=== PATIENT | male | born 1995 | race Hispanic/Latino ===

== ENCOUNTER 2019-01-01 09:25 | Emergency (ER) | payer OTHER ==
[2019-01-01] MEDS ORDERED: Acetaminophen 500 MG TAB ONE (10:15)
[2019-01-01] MEDS ORDERED: Diazepam 10 MG/2 ML SYRINGE ONE (10:15)
[2019-01-01] MEDS ORDERED: Dexamethasone 10 MG/ML VIAL ONE (10:15)
--- NOTE | 2019-01-01 10:56 | RAD ---
EXAM: 3 views of the lumbosacral spine HISTORY: Low back pain COMPARISON: None FINDINGS: 3 views of the lumbosacral spine shows normal height and alignment of the vertebral bodies and intervertebral discs without fracture or subluxation. No significant degenerative changes are seen. The sacroiliac joints are unremarkable. IMPRESSION: No significant lumbar spine abnormality.
--- NOTE | 2019-01-01 10:56 | RAD ---
Exam: Single view of the pelvis HISTORY: Pelvic and hip pain COMPARISON: None FINDINGS: A single view the pelvis shows no evidence of acute fracture or dislocation. No degenerativ e changes seen in either hip. IMPRESSION: No evidence of acute osseous abnormality.
--- NOTE | 2019-01-01 10:56 | RAD ---
EXAM: 3 views of the sacrum/coccyx HISTORY: Sacral/coccygeal pain COMPARISON: None FINDINGS: 3 views of the sacrum/coccyx shows no evidence of displaced sacral or coccygeal fracture. T he sacral alae are symmetric. The sacroiliac joints and pubic symphysis are unremarkable. IMPRESSION: No evidence of sacral or coccygeal fracture.
[2019-01-01] MEDS ORDERED: Ketorolac Tromethamine 30 MG/ML VIAL ONE (11:25)
== END 2019-01-01 11:44 | disposition home or self-care (01) ==
LOC: ERS 09:25
DX: S39.012A Strain of muscle, fascia and tendon of lower back, initial encounter (principal); X50.0XXA Overexertion from strenuous movement or load, initial encounter
CPT/HCPCS: 72100; 72170; 72220; 96372; 96374; 96375; J1100; J1885; J3360

== ENCOUNTER 2019-01-11 10:39 | Outpatient (CLI) | payer OTHER ==
--- NOTE | 2019-01-11 11:52 | MRI ---
MRI Lumbar Spine Noncontrast: HISTORY: Pain COMPARISON: None FINDINGS: There is motion artifact which does limit the evaluation. Conus medullaris is normal in morphology and terminates at the L1 level. 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 L1-2:No significant stenosis L2-3:No significant stenosis L3-4:No significant stenosis L4-5:No significant stenosis L5-S1:Moderate-sized right subarticular disc protrusion impinges the right S1 nerve root. There is mi ld central canal stenosis and mild right foraminal stenosis. No significant left foraminal compromise. IMPRESSION: Moderate-sized right subarticular disc protrusion at L5-S1, with impingement of the traversing right S1 nerve root.
== END 2019-01-11 10:40 | disposition home or self-care (01) ==
LOC: SCSMRI 10:39
PROVIDERS: ATTEND Family Medicine
DX: M54.5 Low back pain (principal); M51.27 Other intervertebral disc displacement, lumbosacral region; M25.80 Other specified joint disorders, unspecified joint
CPT/HCPCS: 72148

== ENCOUNTER 2019-01-20 13:02 | Emergency (ER) | payer OTHER ==
[2019-01-20] MEDS ORDERED: Ketorolac Tromethamine 30 MG/ML VIAL ONE (14:04)
[2019-01-20] MEDS ORDERED: Diazepam 5 MG TAB ONE (14:04)
[2019-01-20] MEDS ORDERED: Dexamethasone 10 MG/ML VIAL ONE (14:21)
[2019-01-20] MEDS ORDERED: Morphine 4 MG/ML VIAL ONE (14:21)
== END 2019-01-20 15:27 | disposition home or self-care (01) ==
LOC: ERS 13:02
DX: M51.26 Other intervertebral disc displacement, lumbar region (principal)
CPT/HCPCS: J1100; J1885; J2270

== ENCOUNTER 2019-03-08 10:40 | Emergency (ER) | payer OTHER ==
[2019-03-08] MEDS ORDERED: Ketorolac Tromethamine 30 MG/ML VIAL ONE (12:28)
== END 2019-03-08 12:53 | disposition home or self-care (01) ==
LOC: ERS 10:40
DX: M54.41 Lumbago with sciatica, right side (principal)
CPT/HCPCS: 96372; 99283; J1885

== ENCOUNTER 2019-11-04 10:21 | Day surgery (SDC) | payer OTHER ==
[2019-11-02 10:12] VITALS: BMI 30.5
--- NOTE | 2019-11-03 19:44 | HP ---
REASON FOR H AND P: Surgery on 11/04/2019, a right L5-S1 microdiskectomy, case [id number]. CHIEF COMPLAINT: Lower back and right leg pain. HISTORY OF PRESENT ILLNESS: Mr. Frandy Littlejohn is a 24-year-old gentleman, has tried spinal epidural injections and physical therapy without any significant relief. He has a right S1 radiculopathy, which is preventing him from working and enjoying life. He denies any bladder or bowel dysfunction. REVIEW OF SYSTEMS: CONSTITUTIONAL: Denies fever or chills. EENT: Denies change in vision or hearing. CARDIAC: Denies chest pain, shortness of breath, or diaphoresis. PULMONARY: Denies shortness of breath, cough, or hemoptysis. GI: Denies abdominal pain, nausea, vomiting, diarrhea, or change in stool formation and consistency. : Denies trouble with urination, frequency of urination, or bloody urine. SKIN: Denies skin rash, bruising, bleeding, or skin masses. MUSCULOSKELETAL: As per history of present illness. NEUROLOGIC: As per history of present illness. PSYCHOLOGIC: Denies anxiety, depression, or behavior changes. MEDICAL HISTORY: Chronic pain. SURGICAL HISTORY: Denies past surgical history. HOSPITALIZATIONS: Denies past hospitalizations. FAMILY HISTORY: Father alive. Mother alive. Children alive. SOCIAL HISTORY: Denies nicotine, illicit drug, and alcohol use. MEDICATIONS: Ibuprofen 800 mg. ALLERGIES: NO KNOWN DRUG ALLERGIES. PHYSICAL EXAMINATION: VITAL SIGNS: Weight 225 pounds, height 68 inches, and BMI 34.27. HEENT: Pupils are equal. Extraocular movements are intact. NECK: Soft and supple. No masses are noted. Range of motion is intact and nonpainful. NEUROLOGIC: Awake, alert, and oriented x3. Attention and fund of knowledge normal. Cranial nerves grossly intact. Gait and station are normal. Motor exam, normal strength in the iliopsoas, quadriceps, hamstring, anterior tib, EHL, gastrocnemius, and toe flexors. Sensory exam shows a mild S1 numbness on the right. Lower extremity exam positive SLR. IMAGING: MRI of the lumbar spine HLD. Right L5-S1 flexion-extension films stable. ASSESSMENT: Intervertebral disk disorder with radiculopathy of the lumbosacral region. PLAN: 1. Right microdiskectomy at L5-S1. 2. Preop lab; CBC, PT, PTT, and COVID-19. 3. Anesthesia clearance. INFORMED CONSENT: We discussed the indications, risks, benefits, alternatives, and expected results from surgery. The risks discussed included, but were not limited to, bleeding, infection, CSF leak, nerve damage, weakness, incontinence, cauda equina injury, arachnoiditis, paralysis, ventilator dependency, wheelchair dependency, loss of vision, cardiopulmonary complications of anesthesia, or . Long-term complications discussed included, but were not limited to spinal instability and future surgery. He understands the risks and is willing to proceed. Job ID: [id number]
[2019-11-04] MEDS ORDERED: Fentanyl 100 MCG/2 ML VIAL ONE ×3 (10:27→15:35)
[2019-11-04] MEDS ORDERED: Ondansetron PF 4 MG/2 ML Vial ONE (11:36)
[2019-11-04] MEDS ORDERED: Dexamethasone 20 MG/5 ML VIAL ONE (11:36)
[2019-11-04] MEDS ORDERED: Rocuronium Bromide 10 MG/ML (10ML VIAL) ONE (11:36)
[2019-11-04] MEDS ORDERED: PROPOFOL 200 MG/20 ML VIAL ONE (11:36)
[2019-11-04] MEDS ORDERED: Lidocaine 1% PF 5 ML VIAL ONE (11:36)
[2019-11-04] MEDS ORDERED: Thrombin 5000 UNITS/5 ML VIAL ONE (11:43)
[2019-11-04] MEDS ORDERED: Bupivacaine PF 0.5% 30 ML VIAL ONE (11:43)
[2019-11-04] MEDS ORDERED: EPINEPHrine 1 MG/ML AMP ONE (11:43)
[2019-11-04] MEDS ORDERED: Midazolam HCl 2 mg/2 ml Vial ONE (12:01)
[2019-11-04] MEDS ORDERED: Meperidine HCl/PF 25 MG/ML VIAL ONE ×2 (15:45→16:04)
[2019-11-04] MEDS ORDERED: HYDROcodone/Acetaminophen 5/325 mg Tablet ONE (17:46)
--- NOTE | 2019-11-04 21:50 | OP ---
DATE OF PROCEDURE: 11/04/2019 [employer] GAUGER: Garth Holman PA-C PREOPERATIVE INDICATION: Treat pain and prevent neurological deterioration. PREOPERATIVE DIAGNOSIS: Intervertebral disk herniation, right L5-S1 with S1 radiculopathy. POSTOPERATIVE DIAGNOSIS: Intervertebral disk herniation, right L5-S1 with S1 radiculopathy. PROCEDURES PERFORMED: Right L5-S1 partial hemilaminectomy, medial facetectomy, foraminotomy, microdiskectomy, operating microscope. PREOPERATIVE MEDICATION: Ancef 2 g IV. DRAIN NUMBER: Zero. DRAIN TYPE: None. DESCRIPTION OF PROCEDURE: The patient was brought to the operating room. General endotracheal anesthesia was induced. The patient was positioned prone on the operating table with the chest and hips supported by gel-filled chest rolls. A lateral fluoro radiograph was used to plan our incision. The lumbar skin was sterilely prepped and draped. We made a midline incision with a 10 blade knife, and we controlled bleeding with bipolar and monopolar cautery. We used monopolar cautery to dissect through subcutaneous tissues to the thoracodorsal fascia. We incised the fascia right in the midline and we reflected the paraspinal muscles off the spinous process of L5 and S1 on the right. A self-retaining retractor was placed. A mario was placed in the facet joint, and a lateral fluoro radiograph confirmed the level upon which we were operating. We then used a Kerrison rongeur to fashion a partial hemilaminectomy. The operative microscope was brought into the field. Under microscopic magnification and using microsurgical techniques, we removed the medial 3 mm of the facet joint and we removed more in the L5 lamina and the superior portion of the S1 lamina. The yellow ligament was removed in a piecemeal fashion. We identified the S1 nerve root that was stretched across the interspace from intervertebral disk protrusion at that interspace. We palpated the disk and found the rim of it completely calcified. There were osteophytes attaching it to the L5 into the S1 vertebral bodies. This disk was calcified because had been out of place for over a year and the workers' comp program did not allow us to do surgery any sooner. Although presented with the challenge of reducing the densely calcified disk, we were able to mobilize the nerve root off it. Using pushing curettes, we fractured the rim of the calcified disk back into the interspace and swept it laterally. This was removed in a piecemeal fashion. At the completion of the discectomy, the S1 nerve root was free across the interspace. It could be mobilized medially and laterally and had no more compression or stretch on it. A foraminotomy was performed over the exit point of the S1 nerve root. We irrigated with bacitracin irrigation. We waxed the bone edges. We controlled bleeding with gentle bipolar cautery. We infused local anesthetic in the paraspinal muscles. We closed the wound in anatomical layers. We applied a sterile dressing. This was a clean case, no contamination. Job ID: [id number]
== END 2019-11-04 19:05 | disposition home or self-care (01) ==
LOC: SDC 10:21
PROVIDERS: ATTEND Neurological Surgery
PROC: 0ST20ZZ Resection of Lumbar Vertebral Disc, Open Approach (ICD-10-PCS; principal; 2019-11-04)
DX: M51.17 Intervertebral disc disorders with radiculopathy, lumbosacral region (principal)
CPT/HCPCS: 76000; J0171; J0690; J1100; J2175; J2250; J2405; J2704; J3010; J3370; J3490; S0020

== ENCOUNTER 2020-07-02 20:16 | Emergency (ER) | payer OTHER ==
[2020-07-02] MEDS ORDERED: Ketorolac Tromethamine 30 MG/ML VIAL ONE (22:56)
== END 2020-07-02 22:55 | disposition home or self-care (01) ==
LOC: ERS 20:16
DX: S46.912A Strain of unspecified muscle, fascia and tendon at shoulder and upper arm level, left arm, initial encounter (principal); S39.012A Strain of muscle, fascia and tendon of lower back, initial encounter; V49.9XXA Car occupant (driver) (passenger) injured in unspecified traffic accident, initial encounter
CPT/HCPCS: 70450; 71045; 72100; 93005; 96374; G0390; J1885

== ENCOUNTER 2023-01-13 20:09 | Emergency (ER) | payer SELFPAY ==
[2023-01-13] MEDS ORDERED: Lorazepam 1 MG TAB ONE (20:38)
[2023-01-13 21:08] LABS: #Basophils 0.1 thou/uL (0.0-0.2); #Eosinphils 0.1 thou/uL (0.0-0.7); #Monocytes 0.8 thou/uL (0.11-0.59); #Neutrophils 10.9 thou/uL (1.40-6.50); %Basophils 0.6 % (0.0-1.0); %Eosinophils 0.9 % (0.0-10.0); %Lymphocytes 14.4 % (21.0-51.0); %Monocytes 5.4 % (0.0-10.0); Hematocrit 39.6 % (42.0-52.0); Hemoglobin 13.5 g/dL (14.0-18.0); Mean Corpuscular HGB CONC 34.1 g/dL (32.0-36.0); Mean Platelet Volume 10.9 fL (7.4-10.4); Platelet Count 307 10x3/uL (130-400); RBC Distribution Width 12.5 % (11.5-14.5); White Blood Cell (WBC) Count 13.9 10x3/uL (4.8-10.8)
[2023-01-13 21:34] LABS: ALT (SGPT) 24 U/L (8-55); AST (SGOT) 23 U/L (5-34); Alkaline Phosphatase 98 U/L (40-110); Anion Gap 14 mmol/L (10-20); BUN (Urea Nitrogen) 14 mg/dL (8.9-20.6); Bilirubin, Total 0.2 mg/dL (0.2-1.2); Calc. Creatinine Clearance 0 mL/min (70-130); Calcium 9.8 mg/dL (7.8-10.44); Carbon Dioxide 23 mmol/L (22-29); Chloride 105 mmol/L (98-107); Estimated GFR 123; Globulin 2.3 g/dL (2.4-3.5); Glucose 122 mg/dL (70-105); Potassium 4.1 mmol/L (3.5-5.1); Protein, Total 7.3 g/dL (6.0-8.3); Sodium 138 mmol/L (136-145)
[2023-01-13 21:35] LABS: Troponin I Less than 0.010 ng/mL (< 0.028)
[2023-01-13] MEDS ORDERED: hydrOXYzine 25 MG TAB ONE (22:18)
== END 2023-01-13 22:30 | disposition home or self-care (01) ==
LOC: ERS 20:09
DX: F41.9 Anxiety disorder, unspecified (principal); R07.9 Chest pain, unspecified
CPT/HCPCS: 36415; 71045; 80053; 83735; 84484; 85025; 93005

== ENCOUNTER 2024-04-30 09:54 | Emergency (ER) | payer SELFPAY | END 2024-04-30 11:17 | disposition home or self-care (01) | LOC: ERS 09:54 | DX: L02.216 Cutaneous abscess of umbilicus (principal) | CPT/HCPCS: 99282 ==